=== PATIENT | female | born 1960 | race African-American/Black ===

== ENCOUNTER 2018-07-11 09:05 | Emergency (ER) | payer OTHER ==
[~2018-07-11] VITALS: Ht 165.1 cm; Wt 99.8 kg
[~2018-07-11 09:05] MED LIST: DEXILANT60 MG; JANUVIA100 MG PO; NAPROSYN500 MG PO; VITAMIN D31000 UNI2
[2018-07-11] MEDS ORDERED: REGLAN 10 MG TA10 MG PO (09:28)
[2018-07-11] MEDS ORDERED: PROTONIX40 M1 PO (09:28)
[2018-07-11 09:41] LABS: URINE BILIRUBIN NEGATIVE (Negative); URINE BLOOD NEGATIVE (Negative); URINE COLOR YELLOW; URINE GLUCOSE-RANDOM* TRACE (Negative); URINE KETONES NEGATIVE (Negative); URINE LEUKOCYTES NEGATIVE (Negative); URINE NITRITE NEGATIVE (Negative); URINE PROTEIN (DIPSTICK) NEGATIVE (Negative); URINE SPECIFIC GRAVITY 1.015 (1.005-1.035); URINE UROBILINOGEN 0.2 E.U./dl (0.2-1.0)
[2018-07-11 09:45] LABS: URINE CLARITY HAZY
[2018-07-11 10:58] LABS: ABSOLUTE NEUTROPHILS 17.3 thou/uL (1.4-8.2); BASOPHILS 0.2 % (0.0-2.0); EOSINOPHILS 0.1 % (0.0-3.0); HEMATOCRIT 38.2 % (37.0-47.0); HEMOGLOBIN 12.4 gm/dL (12.0-15.0); LYMPHOCYTES 8.4 % (24.0-44.0); MCH 28.9 pg (26.0-34.0); MCHC 32.5 g/dL (28.0-37.0); MCV 88.8 fL (80.0-100.0); MONOCYTES 2.8 % (1.0-8.0); PLATELET COUNT 374 thou/uL (150-400); POLYS 88.5 % (36.0-66.0); RBC 4.31 mil/uL (4.20-5.00); RDW 14.4 % (10.5-14.5); WBC 19.5 thou/uL (4.0-11.0)
[2018-07-11 11:07] LABS: CALCIUM 8.7 mg/dL (8.5-10.1); CREATININE 0.9 mg/dL (0.6-1.0); POTASSIUM 3.1 mmol/L (3.5-5.1)
[2018-07-11 11:13] LABS: ALBUMIN 3.6 g/dL (3.4-5.0); TOTAL BILIRUBIN 0.3 mg/dL (<0.1-1.0); TOTAL PROTEIN 7.7 g/dL (6.4-8.2)
[2018-07-11 11:14] LABS: MAGNESIUM 1.8 mg/dL (1.8-2.4); TROPONIN-I <0.06 ng/mL (<0.06)
[2018-07-11 12:53] VITALS: BP 186/82
[2018-07-11] MEDS ORDERED: NORCO 5-325 TA1 EACH PO (13:18)
[2018-07-11] MEDS ORDERED: TORADOL 10 MG T10 MG PO (13:18)
[2018-07-11] MEDS ORDERED: ZOFRAN ODT4 MG DISSOLVE (13:18)
[2018-07-11] MEDS ORDERED: FLOMAX0.4 MG PO (13:18)
--- NOTE | 2018-07-11 13:54 | EKG ---
[address] [place] [address] ELECTROCARDIOGRAM REPORT Name: DQEUAN ROMERO V [facility] [id number] ������������������ Admission: 07/11/18 ������������������ Attend Phys: Discharge: 07/11/18 ������������������ Date of : 64 Report #: [id number] ����������������������������������������������������������������� [id number] THIS REPORT FOR: //name// 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 : 1960 Requested By: Christian Layton Order Number: [id number] MD: Hilton Minor Measurements Intervals [place] Rate: 52 P: 68 SD: 225 QRS: 58 QRSD: 101 T: 77 QT: 570 QTc: 531 Interpretive Statements Sinus rhythm Prolonged SD interval Low voltage, precordial leads Borderline T abnormalities, anterior leads Compared to ECG 06/24/2013 09:02:35 First degree AV block now present Low QRS voltage now present T-wave abnormality now present Electronically Signed On 07-11-2018 13:53:46 CDT by Hilton Minor [email or web address] ��������������������������������������������� <ELECTRONICALLY SIGNED> ���������������������������������������� By: Hilton Minor MD ��������������������������������������������� 07/11/18 1353 1103 1103 Hilton Minor MD /EPI
== END 2018-07-11 13:47 | disposition home or self-care (01) ==
LOC: ER 09:05
PROVIDERS: Emergency Medicine
DX: N20.1 Calculus of ureter (principal); R11.2 Nausea with vomiting, unspecified; I10 Essential (primary) hypertension; J45.909 Unspecified asthma, uncomplicated; E11.9 Type 2 diabetes mellitus without complications; Z88.1 Allergy status to other antibiotic agents